=== PATIENT | female | born 1990 | race Caucasian/White ===

== ENCOUNTER 2016-12-07 10:56 | Emergency (ER) | payer MEDICAID ==
[2016-12-07 11:07] VITALS: BP 137/97
[2016-12-07] MEDS ORDERED: MOTRIN PO ONE (12:54)
--- NOTE | 2016-12-07 12:57 | Emergency Department Report ---
ED ENT HPI - General Chief complaint: Upper Respiratory Infection Stated complaint: THROAT PAIN/HEAD PAIN /COUGH Time Seen by Provider: 12/07/16 12:53 Source: patient Mode of arrival: Ambulatory Limitations: No Limitations - History of Present Illness Initial comments: 26-year-old female past medical history hypertension presents with 3-4 days of body aches sore throat cough. Subjective fever chills. Denies any nausea or vomiting no dysuria. Denies any chest pain or palpitations. Denies recent sick contacts. No recent travel. Awake alert and oriented 3, denies any neck pain no photo or phonophobia. Minor headache. MD complaint: sore throat Onset/Timin -: days(s) Severity: moderate Severity scale (0 -10): 4 Quality: dull Consistency: intermittent - Related Data Previous Rx's Medication Instructions Recorded Last Taken Type Ibuprofen [Motrin] 600 mg PO Q8H PRN #25 tablet 12/07/16 Unknown Rx Allergies Allergy/AdvReac Type Severity Reaction Status Date / Time No Known Allergies Allergy Unverified 12/07/16 11:03 ED Dental HPI - General Chief complaint: Upper Respiratory Infection Stated complaint: THROAT PAIN/HEAD PAIN /COUGH Time Seen by Provider: 12/07/16 12:53 Source: patient Mode of arrival: Ambulatory Limitations: No Limitations - Related Data Previous Rx's Medication Instructions Recorded Last Taken Type Ibuprofen [Motrin] 600 mg PO Q8H PRN #25 tablet 12/07/16 Unknown Rx Allergies Allergy/AdvReac Type Severity Reaction Status Date / Time No Known Allergies Allergy Unverified 12/07/16 11:03 ED Review of Systems ROS: Stated complaint: THROAT PAIN/HEAD PAIN /COUGH Other details as noted in HPI Constitutional: denies: chills, fever Eyes: denies: eye pain, eye discharge, vision change ENT: throat pain. denies: ear pain Respiratory: denies: cough, shortness of breath, wheezing Cardiovascular: denies: chest pain, palpitations Endocrine: no symptoms reported Gastrointestinal: denies: abdominal pain, nausea, diarrhea Genitourinary: denies: urgency, dysuria, discharge Musculoskeletal: denies: back pain, joint swelling, arthralgia Skin: denies: rash, lesions Neurological: headache. denies: weakness, paresthesias Psychiatric: denies: anxiety, depression Hematological/Lymphatic: denies: easy bleeding, easy bruising ED Past Medical Hx - Past Medical History Previous Medical History?: Yes Hx Hypertension: Yes - Surgical History Past Surgical History?: Yes Hx Appendectomy: Yes Additional Surgical History: C-sectiion x 2 - Social History Smoking Status: Never Smoker Substance Use Type: Alcohol, Non Opiate Pain, Prescribed, Other - Medications Home Medications: Home Medications Medication Instructions Recorded Confirmed Last Taken Type Ibuprofen [Motrin] 600 mg PO Q8H PRN #25 tablet 12/07/16 Unknown Rx ED Physical Exam - General Limitations: No Limitations General appearance: alert, in no apparent distress - Head Head exam: Present: atraumatic, normocephalic - Eye Eye exam: Present: normal appearance, PERRL, EOMI - ENT ENT exam: Present: mucous membranes moist - Expanded ENT Exam Expanded Ear exam: Present: normal external inspection Mouth exam: Present: normal external inspection Teeth exam: Present: normal inspection Throat exam: Positive: tonsillar erythema - Neck Neck exam: Present: normal inspection - Respiratory Respiratory exam: Present: normal lung sounds bilaterally. Absent: respiratory distress - Cardiovascular Cardiovascular Exam: Present: regular rate, normal rhythm. Absent: systolic murmur, diastolic murmur, rubs, gallop - GI/Abdominal GI/Abdominal exam: Present: soft, normal bowel sounds - Extremities Exam Extremities exam: Present: normal inspection - Back Exam Back exam: Present: normal inspection - Neurological Exam Neurological exam: Present: alert, oriented X3 - Psychiatric Psychiatric exam: Present: normal affect, normal mood - Skin Skin exam: Present: warm, dry, intact, normal color. Absent: rash ED Course Vital Signs 12/07/16 11:03 Temperature 98.5 F Pulse Rate 89 Respiratory 20 Rate Blood Pressure 137/97 O2 Sat by Pulse 100 Oximetry ED Medical Decision Making - Medical Decision Making A/P: Viral syndrome 1-strep test negative 2-based on patient's symptoms may have viral URI or possibly influenza patient is out of 48-72 hour window for treatment with Tamiflu 3-Motrin when necessary for symptoms 4-f/u with primary care doctor Critical care attestation.: If time is entered above; I have spent that time in minutes in the direct care of this critically ill patient, excluding procedure time. ED Disposition Clinical Impression: Viral syndrome Disposition: DISCHARGED TO HOME OR SELFCARE Is pt being admited?: No Does the pt Need Aspirin: No Condition: Stable Instructions: Viral Syndrome (ED), Influenza (ED) Prescriptions: Ibuprofen [Motrin] 600 mg PO Q8H PRN #25 tablet PRN Reason: Pain Referrals: NEY MORENO MD [Staff Physician] - 3-5 Days Forms: Work/School Release Form(ED), Accompanied Note Time of Disposition: 13:39
== END 2016-12-07 13:46 | disposition home or self-care (01) ==
LOC: ED 10:56
DX: B34.9 Viral infection, unspecified (principal); I10 Essential (primary) hypertension; Z90.49 Acquired absence of other specified parts of digestive tract
CPT/HCPCS: 87116; 87430; 99282

== ENCOUNTER 2016-12-13 08:15 | Emergency (ER) | payer MEDICAID ==
[2016-12-13 08:23] VITALS: BP 131/85
--- NOTE | 2016-12-13 09:43 | Emergency Department Report ---
HPI - General Chief Complaint: Sore Throat - HPI HPI: 26-year-old Nigerian Nigerian female comes in for complaint of sore throat and cough. Patient reports that she was seen here last week for the same complaint. Patient reports she was only prescribed ibuprofen nothing for cough. She denies any fever chills no nausea no vomiting. She reports she's been taking Mucinex and ibuprofen. She does admit to nasal congestion and sneezing. She currently has no past medical history no chronic medication. ED Past Medical Hx - Past Medical History Previous Medical History?: Yes Hx Hypertension: Yes - Surgical History Past Surgical History?: Yes Hx Appendectomy: Yes Additional Surgical History: C-sectiion x 2 - Social History Smoking Status: Never Smoker Substance Use Type: Alcohol, Prescribed - Medications Home Medications: Home Medications Medication Instructions Recorded Confirmed Last Taken Type Ibuprofen [Motrin] 600 mg PO Q8H PRN #25 tablet 12/07/16 Unknown Rx Cetirizine HCl [ZyrTEC] 10 mg PO QDAY #30 capsule 12/13/16 Unknown Rx Fluticasone [Flonase] 1 spray NS QDAY #1 bottle 12/13/16 Unknown Rx Promethazine /Codeine 5 ml PO Q6H PRN #100 ml 12/13/16 Unknown Rx [Phenergan/Codeine 6.25-10 mg/5 ml] ED Review of Systems ROS: Stated complaint: SORE THROAT/COUGH Other details as noted in HPI Constitutional: denies: chills, fever ENT: throat pain Respiratory: cough Physical Exam - Physical Exam Vital Signs: Vital Signs 12/13/16 08:19 Temperature 98.7 F Pulse Rate 81 Respiratory 20 Rate Blood Pressure 131/85 O2 Sat by Pulse 100 Oximetry Physical Exam: GENERAL: Alert and oriented x3, no apparent distress, Normal Gait, atraumatic. HEAD: Head is normocephalic and a-traumatic. EYES: Extra ocular muscles are intact. Pupils are equal, round, and reactive to light and accommodation. EARS: symetrical, atraumatic, non tender, ear canal clear and moderate cerumen, tympanic membrance non inflamed. gross auditory nml bilaterally. NOSE: Nose symetrical, Nontender,Nares appeared normal. MOUTH:Mouth is well hydrated and without lesions. Tonsils nonerythematous or swollen, Uvula midline, Tongue not elevated. Mucous membranes are moist. Posterior pharynx clear, no exudate or lesions. Patent airways. NECK: Supple. Non edematous, No carotid bruits. No lymphadenopathy or thyromegaly. LUNGS: Symetrical with respiration, No wheezing, no rales or crackles, CTAB. HEART: S1, S2 present, regular rate and rhythm without murmur, no rubs, no gallops. NEUROLOGIC: No focal Deficit, Cranial nerves II through XII are grossly intact. No loss of sensation, No facial droop, PSYCHIATRIC: Mood is congruent with affect, SKIN: Warm and dry, No lesions, No ulceration or induration present ED Course Vital Signs 12/13/16 08:19 Temperature 98.7 F Pulse Rate 81 Respiratory 20 Rate Blood Pressure 131/85 O2 Sat by Pulse 100 Oximetry ED Medical Decision Making - Medical Decision Making Patient's been evaluated by this provider fast track. Discussed with patient she most likely has seasonal allergies. Place patient on Flonase, Zyrtec, promethazine with codeine. Encouraged patient to follow the primary care provider. Critical care attestation.: If time is entered above; I have spent that time in minutes in the direct care of this critically ill patient, excluding procedure time. ED Disposition Clinical Impression: Upper respiratory infection, viral Disposition: DISCHARGED TO HOME OR SELFCARE Is pt being admited?: No Does the pt Need Aspirin: No Condition: Stable Instructions: Viral Syndrome (ED) Additional Instructions: Please take medication as prescribed. This persists or gets worse please follow -up with your primary care provider Prescriptions: Cetirizine HCl [ZyrTEC] 10 mg PO QDAY #30 capsule Fluticasone [Flonase] 1 spray NS QDAY #1 bottle Promethazine /Codeine [Phenergan/Codeine 6.25-10 mg/5 ml] 5 ml PO Q6H PRN #100 ml PRN Reason: cough Referrals: PRIMARY CARE, [Primary Care Provider] - 3-5 Days [facility] [Outside] - 3-5 Days Forms: Work/School Release Form(ED), Accompanied Note
== END 2016-12-13 09:53 | disposition home or self-care (01) ==
LOC: ED 08:15
DX: J06.9 Acute upper respiratory infection, unspecified (principal); J02.9 Acute pharyngitis, unspecified; I10 Essential (primary) hypertension
CPT/HCPCS: 99282

== ENCOUNTER 2017-03-06 18:11 | Emergency (ER) | payer MEDICAID ==
[2017-03-06 18:32] VITALS: BP 129/91
[2017-03-06] MEDS ORDERED: MOTRIN PO ONE (21:03)
--- NOTE | 2017-03-06 21:13 | Emergency Department Report ---
ED Headache HPI - General Chief Complaint: Headache Stated Complaint: HEADACHE/BODY PAIN Time Seen by Provider: 03/06/17 20:33 - History of Present Illness Initial Comments: This is a 26-year-old female well-nourished with nontoxic or ill in appearance that presents with sudden onset of headache that is described as worset headache in her life. Patient stated this occurred yesterday when she was at home with no known triggers. Patient denies hx of headaches. Patient denies n/v , dizziness, chest pain, shortness of breath, head trauma, blurry vision, visual changes, fever, chills, stiff neck. He denies any allergies. They stated the location of headache as left temporal and frontal region. Patient describes headache as aching with a level of 7 out of 10. Patient has history of hypertension but patient stated it is well controlled by her primary care doctor. Patient denies any chacnes of . Timing/Duration: 24 hours Quality: moderate Head Injury Location: frontal, temporal (left) Recent Head Trauma: no recent headache/trauma Associated Symptoms: denies symptoms. denies: confusion, fatigue, facial pain, fever/chills, flushing, loss of consciousness, nausea/vomiting, nasal congestion , nasal drainage, numbness in legs/feet, rash, seizures, sinus infection, stiff neck, vision changes, weakness Allergies/Adverse Reactions: Allergies No Known Allergies Allergy (Unverified 12/07/16 11:03) Home Medications: Ambulatory Orders Ibuprofen [Motrin] 600 mg PO Q8H PRN #25 tablet 12/07/16 Cetirizine HCl [ZyrTEC] 10 mg PO QDAY #30 capsule 12/13/16 Fluticasone [Flonase] 1 spray NS QDAY #1 bottle 12/13/16 Promethazine /Codeine [Phenergan/Codeine 6.25-10 mg/5 ml] 5 ml PO Q6H PRN #100 ml 12/13/16 Ibuprofen [Motrin 600 MG tab] 600 mg PO Q8H PRN #15 tablet 03/06/17 ED Review of Systems ROS: Stated complaint: HEADACHE/BODY PAIN Other details as noted in HPI Constitutional: denies: chills, fever Eyes: denies: eye pain, eye discharge, vision change ENT: denies: ear pain, throat pain Respiratory: denies: cough, shortness of breath, wheezing Cardiovascular: denies: chest pain, palpitations Endocrine: no symptoms reported Gastrointestinal: denies: abdominal pain, nausea, diarrhea Genitourinary: denies: urgency, dysuria, discharge Musculoskeletal: denies: back pain, joint swelling, arthralgia Skin: denies: rash, lesions Neurological: denies: headache, weakness, paresthesias Psychiatric: denies: anxiety, depression Hematological/Lymphatic: denies: easy bleeding, easy bruising ED Past Medical Hx - Past Medical History Previous Medical History?: Yes Hx Hypertension: Yes - Surgical History Past Surgical History?: Yes Hx Appendectomy: Yes Additional Surgical History: C-sectiion x 2 - Social History Smoking Status: Never Smoker Substance Use Type: None - Medications Home Medications: Home Medications Medication Instructions Recorded Confirmed Last Taken Type Ibuprofen [Motrin] 600 mg PO Q8H PRN #25 tablet 12/07/16 Unknown Rx Cetirizine HCl [ZyrTEC] 10 mg PO QDAY #30 capsule 12/13/16 Unknown Rx Fluticasone [Flonase] 1 spray NS QDAY #1 bottle 12/13/16 Unknown Rx Promethazine /Codeine 5 ml PO Q6H PRN #100 ml 12/13/16 Unknown Rx [Phenergan/Codeine 6.25-10 mg/5 ml] Ibuprofen [Motrin 600 MG tab] 600 mg PO Q8H PRN #15 tablet 03/06/17 Unknown Rx ED Physical Exam - General Limitations: No Limitations General appearance: alert, in no apparent distress - Head Head exam: Present: atraumatic, normocephalic, normal inspection - Eye Eye exam: Present: normal appearance, PERRL, EOMI. Absent: scleral icterus, conjunctival injection, nystagmus Pupils: Present: normal accommodation - ENT ENT exam: Present: normal exam, normal orophraynx, mucous membranes moist, TM's normal bilaterally, normal external ear exam - Neck Neck exam: Present: normal inspection, full ROM. Absent: tenderness, meningismus, lymphadenopathy, thyromegaly - Respiratory Respiratory exam: Present: normal lung sounds bilaterally. Absent: respiratory distress, wheezes, rales, rhonchi, stridor - Cardiovascular Cardiovascular Exam: Present: regular rate, normal rhythm, normal heart sounds. Absent: bradycardia, tachycardia, irregular rhythm, systolic murmur, diastolic murmur, rubs, gallop - GI/Abdominal GI/Abdominal exam: Present: soft, normal bowel sounds. Absent: distended, tenderness, guarding, rebound, rigid, diminished bowel sounds - Extremities Exam Extremities exam: Present: normal inspection, full ROM, normal capillary refill. Absent: tenderness, pedal edema, joint swelling, calf tenderness - Back Exam Back exam: Present: normal inspection, full ROM. Absent: tenderness, CVA tenderness (R), CVA tenderness (L), muscle spasm, paraspinal tenderness, vertebral tenderness, rash noted - Neurological Exam Neurological exam: Present: alert, oriented X3, CN II-XII intact, normal gait, reflexes normal - Expanded Neurological Exam Expanded Patient oriented to: Present: person, place, time Speech: Present: fluid speech (normal speech) Cranial nerves: EOM's Intact: Normal, Gag Reflex: Normal, Tongue Deviation: Normal, Nystagmus: Normal, Facial Sensation: Normal, Facial Palsy with Forehead Movement: Normal, Facial Palsy without Forehead Movement: Normal Cerebellar function: Finger to Nose: Normal, Heel to Pereyra: Normal, Romberg: Normal Upper motor neuron: Kristofer Neglect: Normal, Pronator Drift: Normal, Babinski Sign : Normal, Sensory Extinction: Normal Sensory exam: Upper Extremity Light Touch: Normal, Upper Extremity Pin Prick: Normal, Upper Extremity Temperature: Normal, UE 2 Point Discrimination: Normal, Lower Extremity Light Touch: Normal, Lower Extremity Pin Prick: Normal, Lower Extremity Temperature: Normal, LE 2 Point Discrimination: Normal Motor strength exam: RUE: 5, LUE: 5, RLE: 5, LLE: 5 DTR: bicep (R): 2+, bicep (L): 2+, tricep (R): 2+, tricep (L): 2+, knee (R): 2+ , knee (L): 2+, ankle (R): 2+, ankle (L): 2+ Best Eye Response ([place]): (4) open spontaneously Best Motor Response (Jemima): (6) obeys commands Best Verbal Response ([place]): (5) oriented [place] Total: 15 - Psychiatric Psychiatric exam: Present: normal affect, normal mood - Skin Skin exam: Present: warm, dry, intact, normal color. Absent: rash ED Course Vital Signs 03/06/17 18:29 Temperature 98.5 F Pulse Rate 86 Respiratory 18 Rate Blood Pressure 129/91 O2 Sat by Pulse 100 Oximetry - Reevaluation(s) Reevaluation #1: 03/06/17 22:04 Patient stated headache has been subsided with a level of 2/10 after treatment in the ED. ED Medical Decision Making - Medical Decision Making ED course: This is a 26-year-old female that presents with headache. 1- after my physical exam, due to the headache pain needed onset with an abrupt onset a CT scan without contrast of the brain/head has been obtained in ED. Dictated by Dr. Dykes; X-ray result has been notified to the patient with no further questions noted by the patient. 2- patient was instructed to follow up with her primary care doctor/neurologist in 3-5 days or if symptoms worsen and unbearable report back emergency room as soon as possible 3- patient received ibuprofen 600 mg at the time of discharge. 4- patient also received ibuprofen 800 mg by mouth in the ED. 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 5- at time time of discharge, the patient does not seem toxic or ill in appearance. No acute signs of distress noted. Patient agrees to discharge treatment plan of care. No further questions noted by the patient. Critical care attestation.: If time is entered above; I have spent that time in minutes in the direct care of this critically ill patient, excluding procedure time. ED Disposition Clinical Impression: Headache Qualifiers: Headache type: unspecified Headache chronicity pattern: acute headache Intractability: not intractable Qualified Code(s): R51 - Headache Disposition: DC-01 TO HOME OR SELFCARE Is pt being admited?: No Does the pt Need Aspirin: No Condition: Stable Instructions: Ibuprofen (By mouth), Acute Headache (ED) Additional Instructions: Follow up with your primary care doctor/neurologist in 3-5 days or if symptoms worsen and unbearable report back emergency room as soon as possible. Take ibuprofen as prescribed. Prescriptions: Ibuprofen [Motrin 600 MG tab] 600 mg PO Q8H PRN #15 tablet PRN Reason: Pain Referrals: PRIMARY CARE, [Primary Care Provider] - 3-5 Days JASON VANG MD [Staff Physician] - 3-5 Days [facility] [Outside] - 3-5 Days [facility] [Outside] - 3-5 Days MYRA SHELDON MD [Referring] - 3-5 Days Forms: Work/School Release Form(ED)
--- NOTE | 2017-03-06 21:32 | Cat Scan Report ---
FINAL REPORT EXAM: CT HEAD/BRAIN WO CON HISTORY: worest headache with new onset TECHNIQUE: CT imaging acquired through the head without intravenous contrast. Transaxial reformations are provided. PRIORS: None. FINDINGS: The ventricles, cisterns and sulci are normal. No intraparenchymal or extra-axial mass, hemorrhage, or mass effect. Escobar and white-matter differentiation is normal. Normal spherical shape of the globes. Paranasal sinuses and mastoid air cells are clear. No skull or facial fracture visualized. IMPRESSION: No acute intracranial abnormality.
[2017-03-06 22:34] LABS: Bilirubin,Urine NEG (Negative); Blood,Urine SM (Negative); Ketones,Urine NEG (Negative); Leukocyte Esterase,Urine TR (Negative); Mucus,Urine FEW /HPF; Nitrite,Urine POS (Negative); Protein,Urine <15 mg/dL mg/dL (Negative)
== END 2017-03-06 22:45 | disposition home or self-care (01) ==
LOC: ED 18:11
DX: R51 Headache (principal); I10 Essential (primary) hypertension
CPT/HCPCS: 70450; 81001; 81025; 99284

== ENCOUNTER 2017-04-24 09:37 | Emergency (ER) | payer BC, MEDICAID ==
[2017-04-24 10:56] LABS: Bacteria,Urine 2+ /HPF (Negative); Bilirubin,Urine NEG (Negative); Blood,Urine MOD (Negative); Ketones,Urine NEG (Negative); Leukocyte Esterase,Urine LG (Negative); Mucus,Urine FEW /HPF; Nitrite,Urine POS (Negative)
[2017-04-24] MEDS ORDERED: XYLOCAINE 1% MPF 5 mL INFILTRATI ONE (11:37)
[2017-04-24] MEDS ORDERED: ROCEPHIN IM STA (11:37)
--- NOTE | 2017-04-24 11:38 | Emergency Department Report ---
ED Female HPI - General Chief complaint: Back Pain/Injury Stated complaint: SIDE/BACK PAIN Time Seen by Provider: 04/24/17 11:28 Source: patient Mode of arrival: Ambulatory Limitations: No Limitations - History of Present Illness Initial comments: Patient here complaining of right flank pain 1 day. Denies any fever or chills. Denies any nausea or vomiting. Denies any urinary burning frequency or urgency. Denies taking [id number] medication. Last menstrual cycle was 04/10/2017. Denies any abdominal pain. Nothing makes pain better or worse. MD Complaint: other (right flank pain) Onset/Timin -: days(s) Location: other (RT flank) Radiation: non-radiating Severity: severe Quality: aching Consistency: constant Improves with: none Worsens with: none Are you Now?: No Last Menstrual Period: 04/10/17 EDC: 01/15/18 Associated Symptoms: denies: vaginal discharge, vaginal bleeding, abdominal pain , nausea/vomiting, fever/chills, headaches, loss of appetite, dysuria, hematuria , rash, seizure, shortness of breath, syncope, weakness - Related Data Sexually active: Yes Previous Rx's Medication Instructions Recorded Last Taken Type Ibuprofen [Motrin] 600 mg PO Q8H PRN #25 tablet 12/07/16 Unknown Rx Cetirizine HCl [ZyrTEC] 10 mg PO QDAY #30 capsule 12/13/16 Unknown Rx Fluticasone [Flonase] 1 spray NS QDAY #1 bottle 12/13/16 Unknown Rx Promethazine /Codeine 5 ml PO Q6H PRN #100 ml 12/13/16 Unknown Rx [Phenergan/Codeine 6.25-10 mg/5 ml] Ibuprofen [Motrin 600 MG tab] 600 mg PO Q8H PRN #15 tablet 03/06/17 Unknown Rx Ibuprofen [Motrin] 600 mg PO Q8H PRN #15 tablet 04/24/17 Unknown Rx Nitrofurantoin [place]/M-Cryst 100 mg PO Q12HR #14 capsule 04/24/17 Unknown Rx [Macrobid CAP] Allergies Allergy/AdvReac Type Severity Reaction Status Date / Time No Known Allergies Allergy Unverified 12/07/16 11:03 ED Review of Systems ROS: Stated complaint: SIDE/BACK PAIN Other details as noted in HPI Comment: All other systems reviewed and negative Constitutional: denies: chills, fever Eyes: denies: eye pain, vision change Respiratory: no symptoms reported Cardiovascular: denies: chest pain, palpitations, edema, syncope Gastrointestinal: denies: abdominal pain, nausea, vomiting, diarrhea, constipation Genitourinary: denies: urgency, dysuria, frequency, hematuria, discharge, abnormal menses, dyspareunia Musculoskeletal: back pain (right flank pain). denies: joint swelling, arthralgia, myalgia Skin: denies: rash Neurological: denies: headache, weakness, numbness, paresthesias, confusion, abnormal gait, vertigo ED Past Medical Hx - Past Medical History Previous Medical History?: Yes Hx Hypertension: Yes - Surgical History Past Surgical History?: Yes Hx Appendectomy: Yes Additional Surgical History: C-sectiion x 2 - Family History Family history: hypertension - Social History Smoking Status: Never Smoker Substance Use Type: None Other Social History: Patient is single - Medications Home Medications: Home Medications Medication Instructions Recorded Confirmed Last Taken Type Ibuprofen [Motrin] 600 mg PO Q8H PRN #25 tablet 12/07/16 Unknown Rx Cetirizine HCl [ZyrTEC] 10 mg PO QDAY #30 capsule 12/13/16 Unknown Rx Fluticasone [Flonase] 1 spray NS QDAY #1 bottle 12/13/16 Unknown Rx Promethazine /Codeine 5 ml PO Q6H PRN #100 ml 12/13/16 Unknown Rx [Phenergan/Codeine 6.25-10 mg/5 ml] Ibuprofen [Motrin 600 MG tab] 600 mg PO Q8H PRN #15 tablet 03/06/17 Unknown Rx Ibuprofen [Motrin] 600 mg PO Q8H PRN #15 tablet 04/24/17 Unknown Rx Nitrofurantoin [place]/M-Cryst 100 mg PO Q12HR #14 capsule 04/24/17 Unknown Rx [Macrobid CAP] ED Physical Exam - General Limitations: No Limitations General appearance: alert, in no apparent distress - Head Head exam: Present: atraumatic, normocephalic, normal inspection - Eye Eye exam: Present: normal appearance, PERRL, EOMI Pupils: Present: normal accommodation - Neck Neck exam: Present: normal inspection, full ROM. Absent: tenderness, meningismus, lymphadenopathy - Respiratory Respiratory exam: Present: normal lung sounds bilaterally. Absent: respiratory distress, chest wall tenderness - Cardiovascular Cardiovascular Exam: Present: regular rate, normal rhythm, normal heart sounds - GI/Abdominal GI/Abdominal exam: Present: soft, normal bowel sounds. Absent: distended, tenderness, guarding, rebound, rigid - Extremities Exam Extremities exam: Present: normal inspection, full ROM, normal capillary refill. Absent: tenderness, pedal edema, joint swelling, calf tenderness - Back Exam Back exam: Present: normal inspection, full ROM, CVA tenderness (R). Absent: tenderness, CVA tenderness (L), muscle spasm, paraspinal tenderness, vertebral tenderness, rash noted - Neurological Exam Neurological exam: Present: alert, oriented X3, normal gait, reflexes normal. Absent: motor sensory deficit - Psychiatric Psychiatric exam: Present: normal affect, normal mood - Skin Skin exam: Present: warm, dry, intact, normal color. Absent: rash ED Course Vital Signs 04/24/17 04/24/17 09:42 11:55 Temperature 98.5 F Pulse Rate 86 Respiratory 16 Rate Blood Pressure 144/100 Blood Pressure 140/88 [Left] O2 Sat by Pulse 100 Oximetry - Reevaluation(s) Reevaluation #1: 04/24/17 11:57 She received Rocephin 1 g IM in the emergency room ED Medical Decision Making - Lab Data Lab Results 04/24/17 Range/Units 10:32 Urine Color Yellow (Yellow) Urine Turbidity Slightly-cloudy (Clear) Urine pH 6.0 (5.0-7.0) Ur Specific [place] 1.012 (1.003-1.030) Urine Protein 100 mg/dl (Negative) mg/dL Urine Glucose (UA) Neg (Negative) mg/dL Urine Ketones Neg (Negative) mg/dL Urine Blood Mod (Negative) Urine Nitrite Pos (Negative) Ur Reducing Substances Not Reportable Urine Bilirubin Neg (Negative) Urine Ictotest Not Reportable Urine Urobilinogen 2.0 (<2.0) mg/dL Ur Leukocyte Esterase Lg (Negative) Urine WBC (Auto) 79.0 H (0.0-6.0) /HPF Urine RBC (Auto) 11.0 (0.0-6.0) /HPF U Epithel Cells (Auto) 3.0 (0-13.0) /HPF Urine Bacteria (Auto) 2+ (Negative) /HPF Urine Mucus Few /HPF Urine HCG, Qual Negative (Negative) Urine culture pending - Medical Decision Making Assessment/plan ED course: Patient came to the hospital today complaining of right flank pain that started going on for 1 day. She does not have any symptoms, nausea vomiting, fever or chills or blood in her urine. And found to have a urinary tract infection. test is negative. I discuss urine result with patient and told her that I will put her on antibiotic. He was understanding of diagnosis and treatment plans and need to follow up with her primary care physician in 3-5 days. Patient given Rocephin 1 g IM in emergency room along with Toradol 60 mg IM for UTI and right flank pain. She does have right CVA tenderness but she is not having typical renal colic to suggest kidney stone. Eat and drink without any difficulties. Diagnosis: Acute cystitis with hematuria, acute right flank pain. Proteinuria 1: Follow-up with your primary care physician in 3-5 days 2: Rocephin 1 g IM given in emergency room without any adverse reaction. 3: Patient discharged home with prescription for Macrobid and Motrin 4. Take medication as prescribed. 5. Increase fluid intake and keep affected area clean and dry. 6:urine CX pending Critical care attestation.: If time is entered above; I have spent that time in minutes in the direct care of this critically ill patient, excluding procedure time. ED Disposition Clinical Impression: Acute cystitis with hematuria, Right flank pain Protein in urine Qualifiers: Proteinuria type: unspecified Qualified Code(s): R80.9 - Proteinuria, unspecified Disposition: TO HOME OR SELFCARE Is pt being admited?: No Does the pt Need Aspirin: No Condition: Stable Instructions: Urinary Tract Infection in Women (ED), Flank Pain (ED) Additional Instructions: Please follow up with primary care as recommended Increase fluid intake Take medication as prescribed . If symptoms worsen and you develop, nausea vomiting, fever or chills and increasing in pain please return to the emergency room ANTONIO. You are spilling protein in urine so he'll need to follow-up for repeat urinalysis in one week U primary care office Prescriptions: Ibuprofen [Motrin] 600 mg PO Q8H PRN #15 tablet PRN Reason: Pain Nitrofurantoin [place]/M-Cryst [Macrobid CAP] 100 mg PO Q12HR #14 capsule Referrals: PRIMARY CARE, [Primary Care Provider] - 3-5 Days Forms: Work/School Release Form(ED)
[2017-04-24 11:56] VITALS: BP 140/88
== END 2017-04-24 12:16 | disposition home or self-care (01) ==
LOC: ED 09:37
DX: N30.01 Acute cystitis with hematuria (principal); R80.9 Proteinuria, unspecified; I10 Essential (primary) hypertension; Z90.49 Acquired absence of other specified parts of digestive tract
CPT/HCPCS: 81001; 81025; 87086; 96372; 99282; J0696; 87076; 87186